=== PATIENT | female | born 1970 | race Caucasian/White ===

== ENCOUNTER 2017-03-11 17:51 | Emergency (ER) | payer MEDICARE, MEDICAID ==
[2017-03-11 17:51] VITALS: O2SAT 100
[2017-03-11 18:05] VITALS: BP 160/105; PULSE 81; RESP 20; TEMP 97.3
[2017-03-11 18:38] LABS: BASOPHILS % (AUTO) 1 % (0-3); EOSINOPHILS % (AUTO) 1 % (0-9); HEMATOCRIT 35 % (35-47); MEAN CORPUSCULAR HGB CONC 34.7 gm/dl (32.0-36.0); MEAN CORPUSCULAR VOLUME 90 fL (81-99); MONOCYTES % (AUTO) 6.1 % (0-12); NEUTROPHILS % (AUTO) 74.4 % (37-80)
[2017-03-11 18:55] LABS: ALT 17 IU/L (14-63); CALCIUM 9.3 mg/dl (8.5-10.1); GLOM FILT RATE 52 mL/min (>60); SALICYLATE < 2.8 mg/dl (2.8-30.0); SODIUM 135 mMol/L (136-145)
[2017-03-11 19:07] LABS: METHADONE NEGATIVE (NEGATIVE); TRICYCLIC ANTIDEPRESSANTS NEGATIVE (NEGATIVE)
[2017-03-11 19:08] LABS: AMPHETAMINES NEGATIVE (NEGATIVE); OPIATES(OP13) NEGATIVE (NEGATIVE); OXYCODONE(OXY) NEGATIVE (NEGATIVE); PROPOXYPHENE(PPX) NEGATIVE (NEGATIVE)
== END 2017-03-11 19:09 | disposition home or self-care (01) | DRG 897 ==
LOC: ED 17:51
DX: F55.8 Abuse of other non-psychoactive substances (principal)
CPT/HCPCS: 36415; 80053; 80305; 80307; 85025; 99282

== ENCOUNTER 2018-05-03 10:43 | Emergency (ER) | payer MEDICARE, MEDICAID ==
[2018-05-03 11:18] VITALS: BP 139/87; PULSE 72; RESP 12; TEMP 96.5; O2SAT 99
== END 2018-05-03 12:30 | disposition home or self-care (01) | DRG 603 ==
LOC: ED 10:43
DX: L03.211 Cellulitis of face (principal); E11.9 Type 2 diabetes mellitus without complications
CPT/HCPCS: 99282